=== PATIENT | male | born 1980 | race Caucasian/White ===

== ENCOUNTER 2017-07-08 00:39 | Emergency (ER) | payer SELFPAY ==
[~2017-07-08] VITALS: Ht 187.9 cm; Wt 117.9 kg
[~2017-07-08 00:39] MED LIST: AMOXICILLIN500 MG PO; ASPIRIN81 M1 PO; CELEXA20 MG PO; GINSENG520 MG PO; LIPITOR20 MG PO; MOTRIN800 MG PO; MULTIVITAMIN1 CTB PO; NAPROSYN500 MG PO; PREDNICOT20 MG PO; PRILOSEC20 M1 PO; SYNTHROID0.025 MG PO; TRAZADONE HYDR100 MG PO; TRAZODONE100 MG PO; ZANTAC 150150 MG PO
[2017-07-08] MEDS ORDERED: ZYRTEC10 MG PO (01:05)
== END 2017-07-08 01:19 | disposition home or self-care (01) ==
LOC: ED 00:39
DX: H10.9 Unspecified conjunctivitis (principal); Z79.899 Other long term (current) drug therapy; Z88.1 Allergy status to other antibiotic agents; Z88.8 Allergy status to other drugs, medicaments and biological substances

== ENCOUNTER 2020-01-23 19:54 | Emergency (ER) | payer OTHER ==
[~2020-01-23] VITALS: Ht 187.9 cm; Wt 122.5 kg
[~2020-01-23 19:54] MED LIST changes: +ZYRTEC10 MG PO
[2020-01-23 20:27] LABS: BASO % 0.8 % (0.0-1.0); EOS # 0.1 10*3/uL (0.0-0.4); EOS % 1.5 % (1.0-4.0); HEMATOCRIT 42.4 % (42.0-52.0); LYMPH # 1.8 10*3/uL (1.3-4.4); MEAN CELL VOLUME 86.5 fl (80.0-94.0); MEAN CORPUSCULAR HGB CONC 34.7 g/dl (33.0-37.0); MEAN PLATELET VOLUME 10.4 fl (9.6-12.3); MONO # 0.4 10*3/uL (0.1-1.0); MONO % 8.1 % (3.0-9.0); NEUT % 55.4 % (47.0-73.0); PLATELET COUNT AUTOMATED 262 10*3/uL (130-400); RED CELL DISTRI WIDTH 12.1 % (0-14.5); WHITE BLOOD COUNT 5.3 10*3/uL (4.8-10.8)
[2020-01-23 20:43] LABS: ALKALINE PHOSPHATASE 55 U/L (45-117); BUN 14 mg/dl (7-24); CHLORIDE 107 mmol/L (98-107); CREATININE 1.29 mg/dL (0.70-1.30); POTASSIUM 3.7 mmol/L (3.5-5.1); SGOT/AST 18 IU/L (3-35); SGPT/ALT 41 U/L (12-78); SODIUM 140 mmol/L (136-145); TOTAL PROTEIN 7.3 gm/dL (6.4-8.2)
[2020-01-23] MEDS ORDERED: DIAZEPAM2 MG PO (22:08)
[2020-01-23] MEDS ORDERED: Meclizine25 MG PO (22:08)
[2020-01-23] MEDS ORDERED: IBUPROFEN600 MG PO (22:08)
== END 2020-01-23 23:32 | disposition home or self-care (01) ==
LOC: ED 19:54
PROVIDERS: Emergency Medicine
DX: G43.809 Other migraine, not intractable, without status migrainosus (principal); Z88.8 Allergy status to other drugs, medicaments and biological substances; Z88.2 Allergy status to sulfonamides; Z79.899 Other long term (current) drug therapy

== ENCOUNTER 2020-01-26 12:35 | Emergency (ER) | payer OTHER ==
[~2020-01-26] VITALS: Ht 187.9 cm; Wt 122.5 kg
[~2020-01-26 12:35] MED LIST changes: +DIAZEPAM2 MG PO; +IBUPROFEN600 MG PO; +Meclizine25 MG PO
[2020-01-26 13:35] LABS: BASO % 0.7 % (0.0-1.0); EOS # 0.1 10*3/uL (0.0-0.4); EOS % 2.6 % (1.0-4.0); LYMPH # 1.4 10*3/uL (1.3-4.4); LYMPH % 30.7 % (27.0-41.0); MEAN CELL VOLUME 86.2 fl (80.0-94.0); MEAN CORPUSCULAR HGB 29.4 pg (27.0-31.0); MEAN PLATELET VOLUME 10.4 fl (9.6-12.3); MONO # 0.3 10*3/uL (0.1-1.0); MONO % 6.8 % (3.0-9.0); NEUT # 2.7 10*3/uL (2.3-7.9); NEUT % 59.2 % (47.0-73.0); PLATELET COUNT AUTOMATED 244 10*3/uL (130-400); RED BLOOD COUNT 4.87 10*6/uL (4.50-5.90); RED CELL DISTRI WIDTH 12.3 % (0-14.5); WHITE BLOOD COUNT 4.5 10*3/uL (4.8-10.8)
[2020-01-26 13:51] LABS: ALBUMIN 3.8 gm/dl (3.1-4.5); ALKALINE PHOSPHATASE 48 U/L (45-117); BUN 18 mg/dl (7-24); CHLORIDE 106 mmol/L (98-107); CREATININE 1.09 mg/dL (0.70-1.30); LIPASE 208 U/L (73-393); POTASSIUM 4.1 mmol/L (3.5-5.1); SGOT/AST 16 IU/L (3-35); SGPT/ALT 42 U/L (12-78); SODIUM 139 mmol/L (136-145); TOTAL PROTEIN 7.3 gm/dL (6.4-8.2)
[2020-01-26 13:53] LABS: ACT PARTIAL THROMBO TIME 24.8 SECONDS (20.0-32.1); TROPONIN I < 0.015 ng/ml (<0.045)
== END 2020-01-26 18:15 | disposition short-term general hospital (02) ==
LOC: ED 12:35
PROVIDERS: Emergency Medicine
DX: G45.9 Transient cerebral ischemic attack, unspecified (principal); R42 Dizziness and giddiness; F32.9 Major depressive disorder, single episode, unspecified; K21.9 Gastro-esophageal reflux disease without esophagitis; Z88.8 Allergy status to other drugs, medicaments and biological substances; Z88.2 Allergy status to sulfonamides; Z79.899 Other long term (current) drug therapy

== ENCOUNTER → 2021-04-04 | Outpatient (CLI) | payer OTHER | END | disposition home or self-care (01) | LOC: US 08:30 | PROVIDERS: ATTEND Family Medicine | DX: K76.0 Fatty (change of) liver, not elsewhere classified (principal); R16.1 Splenomegaly, not elsewhere classified ==

== ENCOUNTER → 2021-07-06 | Day surgery (SDC) | payer OTHER ==
[~2021-07-06] VITALS: Ht 187.9 cm; Wt 117.9 kg
[~2021-07-06] MED LIST changes: +CARAFATE1 G1 PO; +DAILY VALUE1 EACH PO; +DULCOLAX STOOL100 M1 PO; +LEVOFLOXACIN750 M2 PO; +MAGOX 400400 MG PO; +PEPCID40 MG PO; -SYNTHROID0.025 MG PO; +Synthroid,Levo50 MCG PO; +TOPIRAMATE25 M1 PO; +VENLAFAXINE75 M1 PO; +VITAMIN B250 MG PO
[2021-07-06 08:56] VITALS: BP 103/63
[2021-07-06 09:00] VITALS: BP 106/68
[2021-07-06 09:15] VITALS: BP 123/74
== END | disposition home or self-care (01) ==
LOC: SDC 06-26 08:00
PROVIDERS: ATTEND Surgery
DX: K59.00 Constipation, unspecified (principal); K29.70 Gastritis, unspecified, without bleeding; F32.9 Major depressive disorder, single episode, unspecified; F41.9 Anxiety disorder, unspecified; K21.9 Gastro-esophageal reflux disease without esophagitis; Z88.1 Allergy status to other antibiotic agents; Z88.2 Allergy status to sulfonamides; Z79.899 Other long term (current) drug therapy; Z20.822 Contact with and (suspected) exposure to COVID-19

== ENCOUNTER → 2022-02-23 | Outpatient (CLI) | payer OTHER | LOC: RAD 08:45 | PROVIDERS: ATTEND Family Medicine | DX: M25.561 Pain in right knee (principal) ==

== ENCOUNTER 2023-12-05 22:09 | Emergency (ER) | payer OTHER ==
[~2023-12-05] VITALS: Ht 187.9 cm; Wt 115.7 kg
[2023-12-05] MEDS ORDERED: Ketorolac Tromethamine 60 MG/2 ML VIAL IM ONE (23:45)
[2023-12-05] MEDS ORDERED: METHOCARBAMOL 500 MG TAB PO ONE (23:45)
[2023-12-05] MEDS ORDERED: NAPROXEN250 MG PO (23:46)
[2023-12-05] MEDS ORDERED: METHOCARBAMOL500 M1 PO (23:46)
== END 2023-12-05 23:56 | disposition home or self-care (01) ==
LOC: ED 22:09
DX: R07.89 Other chest pain (principal); F32.A Depression, unspecified; K21.9 Gastro-esophageal reflux disease without esophagitis; F41.9 Anxiety disorder, unspecified; Z88.2 Allergy status to sulfonamides; Z88.8 Allergy status to other drugs, medicaments and biological substances; Z90.49 Acquired absence of other specified parts of digestive tract; Z98.890 Other specified postprocedural states

== ENCOUNTER 2024-02-28 17:49 | Emergency (ER) | payer OTHER ==
[~2024-02-28] VITALS: Ht 187.9 cm; Wt 117.9 kg
[~2024-02-28 17:49] MED LIST changes: +METHOCARBAMOL500 M1 PO; +NAPROXEN250 MG PO
[2024-02-28] MEDS ORDERED: ATARAX,VISTARIL10 MG PO (19:06)
[2024-02-28] MEDS ORDERED: Tdap Vaccine 0.5 ML SYR (Adult Vaccine) IM ONE (19:35)
== END 2024-02-28 21:42 | disposition home or self-care (01) ==
LOC: ED 17:49
DX: S80.811A Abrasion, right lower leg, initial encounter (principal); K21.9 Gastro-esophageal reflux disease without esophagitis; F32.A Depression, unspecified; G43.909 Migraine, unspecified, not intractable, without status migrainosus; F41.9 Anxiety disorder, unspecified; Z88.2 Allergy status to sulfonamides; Z88.8 Allergy status to other drugs, medicaments and biological substances; Z98.890 Other specified postprocedural states; V29.99XA Rider (driver) (passenger) of other motorcycle injured in unspecified traffic accident, initial encounter; Y93.55 Activity, bike riding; Y92.410 Unspecified street and highway as the place of occurrence of the external cause; Y99.8 Other external cause status

== ENCOUNTER → 2024-10-29 | Outpatient (CLI) | payer SELFPAY ==
[~2024-10-29] MED LIST changes: +ATARAX,VISTARIL10 MG PO
== END ==
LOC: RESCLI 12:50
PROVIDERS: ATTEND Internal Medicine
DX: F41.8 Other specified anxiety disorders (principal); K59.00 Constipation, unspecified; E03.9 Hypothyroidism, unspecified; K21.9 Gastro-esophageal reflux disease without esophagitis; K58.9 Irritable bowel syndrome, unspecified; E78.00 Pure hypercholesterolemia, unspecified; E53.9 Vitamin B deficiency, unspecified; G47.00 Insomnia, unspecified; Z82.49 Family history of ischemic heart disease and other diseases of the circulatory system; Z88.8 Allergy status to other drugs, medicaments and biological substances; Z79.899 Other long term (current) drug therapy

== ENCOUNTER 2024-12-30 11:11 | Emergency (ER) | payer SELFPAY ==
[~2024-12-30] VITALS: Wt 117.9 kg
[2024-12-30] MEDS ORDERED: LORazepam 1 MG TAB PO ONE (11:40)
[2024-12-30 11:57] LABS: BASO % 0.3 % (0.0-1.0); EOS # 0.1 10*3/uL (0.0-0.4); EOS % 1.3 % (1.0-4.0); HEMATOCRIT 42.2 % (42.0-52.0); MEAN CELL VOLUME 85.9 fl (80.0-94.0); MEAN CORPUSCULAR HGB 29.3 pg (27.0-31.0); MEAN CORPUSCULAR HGB CONC 34.1 g/dl (33.0-37.0); MEAN PLATELET VOLUME 10.3 fl (9.6-12.3); MONO # 0.4 10*3/uL (0.1-1.0); MONO % 6.2 % (3.0-9.0); NEUT # 3.8 10*3/uL (2.3-7.9); NEUT % 62.7 % (47.0-73.0); PLATELET COUNT AUTOMATED 265 10*3/uL (130-400); RED BLOOD COUNT 4.91 10*6/uL (4.50-5.90); RED CELL DISTRI WIDTH 12.4 % (0-14.5); WHITE BLOOD COUNT 6.1 10*3/uL (4.8-10.8)
[2024-12-30 12:24] LABS: ALKALINE PHOSPHATASE 59 U/L (46-116); BUN 18 mg/dl (9-23); CHLORIDE 103 mmol/L (98-107); POTASSIUM 3.5 mmol/L (3.4-5.1); SGPT/ALT 58 U/L (5-49)
[2024-12-30 12:56] LABS: BILIRUBIN Negative (Negative); BLOOD Negative (Negative); CLARITY Clear (Clear); COLOR Dark Yellow (Yellow); GLUCOSE Negative (Negative); KETONE Trace (Negative); LEUKO ESTERASE Negative (Negative); NITRITE Negative (Negative); SPECIFIC GRAVITY >= 1.030 (1.001-1.030)
[2024-12-30 13:30] LABS: BACTERIA TRACE; RBC 0-2 rbc/hpf (0-2); WBC 0-2 wbc/hpf (0-5)
[2024-12-30] MEDS ORDERED: ATIVAN1 MG PO (14:25)
== END 2024-12-30 14:30 | disposition home or self-care (01) ==
LOC: ED 11:11
PROVIDERS: Nurse Practitioner Family
DX: F41.9 Anxiety disorder, unspecified (principal); R42 Dizziness and giddiness; F32.A Depression, unspecified; K21.9 Gastro-esophageal reflux disease without esophagitis; E03.9 Hypothyroidism, unspecified; Z88.1 Allergy status to other antibiotic agents; Z88.2 Allergy status to sulfonamides; Z79.899 Other long term (current) drug therapy

== ENCOUNTER 2025-02-17 20:59 | Emergency (ER) | payer SELFPAY ==
[~2025-02-17] VITALS: Ht 187.9 cm; Wt 117.9 kg
[~2025-02-17 20:59] MED LIST changes: +ATIVAN1 MG PO
== END 2025-02-17 22:08 | disposition home or self-care (01) ==
LOC: ED 20:59
DX: S93.401A Sprain of unspecified ligament of right ankle, initial encounter (principal); K21.9 Gastro-esophageal reflux disease without esophagitis; F32.A Depression, unspecified; F41.9 Anxiety disorder, unspecified; Z79.899 Other long term (current) drug therapy; Z88.1 Allergy status to other antibiotic agents; Z88.2 Allergy status to sulfonamides; Z88.6 Allergy status to analgesic agent; Z98.890 Other specified postprocedural states; W10.9XXA Fall (on) (from) unspecified stairs and steps, initial encounter; Y93.89 Activity, other specified; Y92.89 Other specified places as the place of occurrence of the external cause; Y99.8 Other external cause status